=== PATIENT | female | born 1960 | race Caucasian/White ===

== ENCOUNTER → 2020-12-24 | Outpatient (CLI) | payer OTHER | LOC: US 14:00 → KOH-I 15:00 → US 15:36 | DX: E04.2 Nontoxic multinodular goiter (principal) | CPT/HCPCS: 76536 ==

== ENCOUNTER → 2021-11-07 | Outpatient (CLI) | payer OTHER | LOC: KOH-I 10-28 15:30 | DX: R51.9 Headache, unspecified (principal); R55 Syncope and collapse; R00.2 Palpitations; I65.23 Occlusion and stenosis of bilateral carotid arteries | CPT/HCPCS: 70450; 93880 ==

== ENCOUNTER 2022-01-22 11:53 | Emergency (ER) | payer BC ==
[2022-01-22] MEDS ORDERED: CEFDINIR250 MG/5 M PO (12:34)
[2022-01-22] MEDS ORDERED: NAPROXEN500 MG PO (14:22)
== END 2022-01-22 14:34 | disposition home or self-care (01) ==
LOC: ER1 11:53
DX: S61.412A Laceration without foreign body of left hand, initial encounter (principal); Z90.710 Acquired absence of both cervix and uterus; Z90.49 Acquired absence of other specified parts of digestive tract; Z88.0 Allergy status to penicillin; Z88.1 Allergy status to other antibiotic agents; W26.0XXA Contact with knife, initial encounter; Y92.009 Unspecified place in unspecified non-institutional (private) residence as the place of occurrence of the external cause; Y93.89 Activity, other specified
CPT/HCPCS: 12002; 90471; 90714; 99283